=== PATIENT | female | born 1965 | race Two or more races ===

== ENCOUNTER → 2017-02-25 | Outpatient (CLI) | payer OTHER | END | disposition home or self-care (01) | LOC: KCIC US 12:24 | DX: D25.9 Leiomyoma of uterus, unspecified (principal); N88.8 Other specified noninflammatory disorders of cervix uteri | CPT/HCPCS: 76830; 76856 ==

== ENCOUNTER 2017-04-03 07:42 | Observation (INO) | payer OTHER ==
[~2017-04-03 07:42] MED LIST: HYDROmorphone 2 MG/ML VIAL IV; LIDOCAINE 1% PF 2 ML VIAL. ID; METHYLENE BLUE 1% 10 ML VIAL.; MORPHINE SULFATE 2 MG/ML DISP.SYRIN. IV; ONDANSETRON PF 4 MG/2 ML VIAL. IV; PROCHLORPERAZINE 10 MG/2 ML VIAL. IV; SURGICEL HEMOSTAT 4X8 EACH.; fentaNYL PF VIAL 100 MCG/2 ML VIAL IV
[2017-04-03 08:25] LABS: ADD MAN DIFF? NO
[2017-04-03 08:29] LABS: BASO # 0.1 x10^3/uL (0.0-0.2); BASO % 1 % (0-3); EOS # 0.3 x10^3/uL (0.0-0.7); EOS % 3 % (0-3); HEMATOCRIT 35.7 % (36.0-47.0); HEMOGLOBIN 10.7 g/dL (12.0-15.5); LYMPH # 1.1 x10^3/uL (1.0-4.8); LYMPH % 10 % (24-48); MEAN CORPUSCULAR HEMOGLOBIN 20 pg (25-35); MEAN CORPUSCULAR HGB CONC 30 g/dL (31-37); MEAN CORPUSCULAR VOLUME 68 fL (79-100); MONO # 0.8 x10^3/uL (0.0-1.1); MONO % 7 % (0-9); NEUT # 8.6 x10^3uL (1.8-7.7); NEUT % 79 % (31-73); PLATELET COUNT 672 x10^3/uL (140-400); RED BLOOD COUNT 5.28 x10^6/uL (3.50-5.40); RED CELL DISTRIBUTION WIDTH 24.3 % (11.5-14.5)
[2017-04-03 08:30] LABS: NEG OBC UR NEG; POS OBC UR POS; U PREG PATIENT NEGATIVE (NEG)
[2017-04-03] MEDS: IV RINGERS,LACTATED 1000ML 1,000 ML IV ×2 (08:30)
[2017-04-03] MEDS ORDERED: FAMOTIDINE 20 MG/2 ML VIAL ×2 (08:50)
[2017-04-03] MEDS ORDERED: fentaNYL PF VIAL 100 MCG/2 ML VIAL ×2 (08:50)
[2017-04-03] MEDS ORDERED: LIDOCAINE 2% PF Vial for OR 5 ML VIAL. ×2 (08:50)
[2017-04-03] MEDS ORDERED: ONDANSETRON PF 4 MG/2 ML VIAL. ×2 (08:50)
[2017-04-03] MEDS ORDERED: DEXAMETHASONE SOD PHOS 20 MG/5 ML VIAL. ×2 (08:50)
[2017-04-03] MEDS ORDERED: ROCURONIUM 50 MG/5 ML VIAL. ×2 (08:50)
[2017-04-03] MEDS ORDERED: PROPOFOL 20 ML IV ×2 (08:50)
[2017-04-03] MEDS ORDERED: MIDAZOLAM HCL/PF 2 MG/2 ML VIAL. ×2 (08:50)
[2017-04-03] MEDS ORDERED: KETOROLAC 30 MG/ML INJ FOR OR. INJ ×2 (09:50)
[2017-04-03] MEDS: LIDOCAINE 1%/EPI 1:100,000 20 ML VIAL. ×2 (10:00)
[2017-04-03] MEDS: BUPIVACAINE-EPI 0.25%-1:200000 50 ML VIAL. ×2 (10:00)
[2017-04-03 10:16] LABS: PLT ESTIMATE INCREASED (ADEQUATE)
[2017-04-03 10:17] LABS: ANISOCYTOSIS MOD; HYPOCHROMIA SLIGHT; MICROCYTOSIS PRESENT; OVALOCYTES FEW
[2017-04-03] MEDS ORDERED: NEOSTIGMINE METHYLSULFATE 5 MG/5 ML SYRINGE. ×2 (10:58)
[2017-04-03] MEDS ORDERED: GLYCOPYRROLATE 1 MG/5 ML VIAL. ×2 (10:58)
[2017-04-03] MEDS: ESTROGENS, CONJ VAGINAL CREAM 30GM TUBE. ×2 (11:00)
[2017-04-03] MEDS ORDERED: ePHEDrine PF IN SALINE 50 MG/5 ML DISP.SYRIN IV (11:03)
[2017-04-03] MEDS ORDERED: SEVOFLURANE 61 TO 120 MINUTES. IH ×2 (11:12)
[2017-04-03] MEDS ORDERED: CALCIUM CARBONATE 500 MG TAB.CHEW PO ×2 (11:30)
[2017-04-03] MEDS ORDERED: ZOLPIDEM 5 MG TABLET. PO ×2 (11:30)
[2017-04-03] MEDS ORDERED: diphenhydrAMINE HCL 25 MG CAPSULE PO ×2 (11:30)
[2017-04-03] MEDS ORDERED: PROCHLORPERAZINE 10 MG/2 ML VIAL. IV ×2 (11:30)
[2017-04-03] MEDS ORDERED: KETOROLAC 30 MG/ML INJ. IV ×2 (11:30)
[2017-04-03] MEDS ORDERED: 0.9 % SODIUM CHLORIDE 10 ML DISP.SYRIN. IV ×2 (11:30)
[2017-04-03] MEDS ORDERED: ONDANSETRON PF 4 MG/2 ML VIAL. IV ×2 (11:30)
[2017-04-03] MEDS ORDERED: DEXTROSE 50% 25 GM / 50ML DISP.SYRIN. IV ×2 (11:30)
[2017-04-03] MEDS ORDERED: diphenhydrAMINE 50 MG/ML VIAL IV ×2 (11:30)
[2017-04-03] MEDS: fentaNYL PF VIAL 100 MCG/2 ML VIAL IV ×4 (11:58→12:14)
[2017-04-03] MEDS: GABAPENTIN 300 MG CAPSULE. PO ×4 (14:00→21:31)
[2017-04-03] MEDS: oxyCODONE/APAP 5/325 1 TAB TABLET PO ×4 (15:04→21:36)
[2017-04-04] MEDS: GABAPENTIN 300 MG CAPSULE. PO ×4 (05:39→14:35)
[2017-04-04] MEDS: SIMETHICONE 80 MG TAB.CHEW PO ×4 (06:00→10:56)
[2017-04-04 06:37] LABS: BASO % 0 % (0-3); EOS % 0 % (0-3); HEMATOCRIT 29.8 % (36.0-47.0); HEMOGLOBIN 9.1 g/dL (12.0-15.5); LYMPH % 6 % (24-48); MEAN CORPUSCULAR HEMOGLOBIN 21 pg (25-35); MEAN CORPUSCULAR HGB CONC 30 g/dL (31-37); MEAN CORPUSCULAR VOLUME 67 fL (79-100); MONO # 0.8 x10^3/uL (0.0-1.1); MONO % 5 % (0-9); NEUT # 15.8 x10^3uL (1.8-7.7); NEUT % 90 % (31-73); PLATELET COUNT 557 x10^3/uL (140-400); RED BLOOD COUNT 4.43 x10^6/uL (3.50-5.40); RED CELL DISTRIBUTION WIDTH 24.4 % (11.5-14.5); WHITE BLOOD COUNT 17.7 x10^3/uL (4.0-11.0)
[2017-04-04 06:38] LABS: ADD MAN DIFF? YES
[2017-04-04 07:24] LABS: % BANDS 1 % (0-9); % LYMPHS 8 % (24-48); % MONOS 4 % (0-10); % SEGS 87 % (35-66); ANISOCYTOSIS PRESENT; HYPOCHROMIA PRESENT; MICROCYTOSIS PRESENT; POIKILOCYTOSIS PRESENT; POLYCHROMASIA PRESENT
[2017-04-04 07:49] LABS: PLT ESTIMATE INCREASED (ADEQUATE)
[2017-04-04] MEDS: ASPIRIN ENTERIC COATED 81 MG TABLET.DR. PO ×2 (10:50)
[2017-04-04] MEDS: oxyCODONE/APAP 5/325 1 TAB TABLET PO ×2 (15:02)
[2017-04-04] MEDS: BISACODYL 10 MG SUPP.RECT. PR ×2 (15:38)
== END 2017-04-04 17:48 | disposition home or self-care (01) ==
LOC: SURG 07:42 → 3 NORTH 11:18
DX: D25.9 Leiomyoma of uterus, unspecified (principal); N94.6 Dysmenorrhea, unspecified; N83.292 Other ovarian cyst, left side
CPT/HCPCS: 36415; 81025; 85007; 85025; 86850; 86900; 86901; 88307; A4215; G0378; G0379; J0690; J1100; J1885; J2250; J2405; J2704; J2710; J3010; J3490; J7030; J7120; Q9968; S0028

== ENCOUNTER → 2017-12-08 | Outpatient (CLI) | payer OTHER ==
[2017-04-04 17:33] VITALS: BP 136/89
[~2017-12-08] MED LIST changes: +AMLO5TAB7 PO; +ASPI-630 PO; +ATOR20TA58 PO; +DOCU-109 PO; +FERR325T14 PO; +FOLI1TAB16 PO; -HYDROmorphone 2 MG/ML VIAL IV; +LEVO50TA5 PO; -LIDOCAINE 1% PF 2 ML VIAL. ID; +LISI-130 PO; -METHYLENE BLUE 1% 10 ML VIAL.; -MORPHINE SULFATE 2 MG/ML DISP.SYRIN. IV; -ONDANSETRON PF 4 MG/2 ML VIAL. IV; +OXYC-323 PO; -PROCHLORPERAZINE 10 MG/2 ML VIAL. IV; -SURGICEL HEMOSTAT 4X8 EACH.; -fentaNYL PF VIAL 100 MCG/2 ML VIAL IV
--- NOTE | 2017-12-08 17:26 | KCIC ---
History: Routine screening. Technique: Bilateral digital mammographic routine views were obtained with CAD - computer aided detection. Comparison: None. Findings: Breast Tissue Density B :The breast tissue is composed of mixed fatty and fibroglandular tissue. There are no suspicious masses, microcalcifications or areas of architectural distortion. Impression: Negative mammogram. BI-RADS Category 1: Negative. Normal interval followup. A mammogram does not have 100% sensitivity and therefore a negative imaging study should not delay further work up of a suspicious abnormality. The patient will receive a letter with the results in the mail. Patient information is entered into the reminder system with a target due date for the next screening mammogram. The patient will receive a reminder. "Our facility is accredited by the [employer] Mammography [employer]." Electronically signed by: Teodoro Scanlon III, MD (12/08/2017 5:23 PM) [facility]
== END | disposition home or self-care (01) ==
LOC: KCIC MAMMO 12:52
PROVIDERS: ATTEND Obstetrics & Gynecology
DX: Z12.31 Encounter for screening mammogram for malignant neoplasm of breast (principal)
CPT/HCPCS: 77067

== ENCOUNTER → 2019-02-12 | Outpatient (CLI) | payer OTHER ==
[2017-04-04 17:33] VITALS: BP 136/89
[~2019-02-12] MED LIST changes: +AMLO5TAB10 PO; -AMLO5TAB7 PO; -OXYC-323 PO; +OXYC1TAB15 PO
--- NOTE | 2019-02-15 09:34 | KCIC ---
BILATERAL SCREENING MAMMOGRAM History: Routine screening. Comparison: Bilateral mammogram 12/08/2017. Technique: Routine bilateral digital mammogram views were obtained. Findings: Breast Tissue Density B : There are scattered areas of fibroglandular density. There are no dominant masses, suspicious microcalcifications, or architectural distortion. IMPRESSION: No mammographic evidence of malignancy. Recommend routine screening. BI-RADS category 1: Negative. The images were reviewed with computer aided detection. Patient information is entered into the reminder system with a target due date for the next screening mammogram. Mammography is the most sensitive method for finding small breast cancers, but it does not detect them all and is not a substitute for careful clinical examination. A negative mammogram does not negate a clinically suspicious finding and should not result in delay in biopsying a clinically suspicious abnormality. "Our facility is accredited by the [employer] Mammography [employer]." Electronically signed by: Matthieu Spear MD (02/15/2019 9:31 AM) [facility]
== END | disposition home or self-care (01) ==
LOC: KCIC MAMMO 14:39
PROVIDERS: ATTEND Family Medicine
DX: Z12.31 Encounter for screening mammogram for malignant neoplasm of breast (principal)
CPT/HCPCS: 77067

== ENCOUNTER → 2020-07-12 | Outpatient (CLI) | payer OTHER ==
[2017-04-04 17:33] VITALS: BP 136/89
[~2020-07-12] MED LIST changes: +AMLO-186 PO; -AMLO5TAB10 PO
[2020-07-12 14:35] LABS: BASO # 0.1 x10^3/uL (0.0-0.2); BASO % 1 % (0-3); EOS # 0.1 x10^3/uL (0.0-0.7); EOS % 2 % (0-3); HEMATOCRIT 46.3 % (36.0-47.0); HEMOGLOBIN 15.3 g/dL (12.0-15.5); LYMPH # 1.4 x10^3/uL (1.0-4.8); LYMPH % 19 % (24-48); MEAN CORPUSCULAR HEMOGLOBIN 33 pg (25-35); MEAN CORPUSCULAR HGB CONC 33 g/dL (31-37); MEAN CORPUSCULAR VOLUME 98 fL (79-100); MONO # 0.6 x10^3/uL (0.0-1.1); MONO % 9 % (0-9); NEUT # 4.9 x10^3/uL (1.8-7.7); NEUT % 70 % (31-73); PLATELET COUNT 292 x10^3/uL (140-400); RED BLOOD COUNT 4.71 x10^6/uL (3.50-5.40); RED CELL DISTRIBUTION WIDTH 16.4 % (11.5-14.5); WHITE BLOOD COUNT 7.1 x10^3/uL (4.0-11.0)
[2020-07-12 14:43] LABS: CALCIUM 9.1 mg/dL (8.5-10.1); CREATININE 0.8 mg/dL (0.6-1.0); POTASSIUM 4.2 mmol/L (3.5-5.1)
[2020-07-12 14:49] LABS: ALBUMIN 4.1 g/dL (3.4-5.0); TOTAL BILIRUBIN 0.6 mg/dL (0.2-1.0); TOTAL PROTEIN 8.1 g/dL (6.4-8.2)
== END ==
LOC: ONCLAB 13:51
PROVIDERS: ATTEND Internal Medicine Hematology & Oncology
DX: D45 Polycythemia vera (principal)
CPT/HCPCS: 36415; 80053; 83615; 85025

== ENCOUNTER → 2020-10-17 | Outpatient (CLI) | payer OTHER ==
[2017-04-04 17:33] VITALS: BP 136/89
[2020-10-17 08:50] LABS: BASO # 0.1 x10^3/uL (0.0-0.2); BASO % 1 % (0-3); EOS # 0.1 x10^3/uL (0.0-0.7); EOS % 2 % (0-3); HEMATOCRIT 46.3 % (36.0-47.0); HEMOGLOBIN 15.6 g/dL (12.0-15.5); LYMPH # 1.4 x10^3/uL (1.0-4.8); LYMPH % 18 % (24-48); MEAN CORPUSCULAR HEMOGLOBIN 34 pg (25-35); MEAN CORPUSCULAR HGB CONC 34 g/dL (31-37); MEAN CORPUSCULAR VOLUME 101 fL (79-100); MONO # 0.5 x10^3/uL (0.0-1.1); MONO % 6 % (0-9); NEUT # 5.5 x10^3/uL (1.8-7.7); NEUT % 73 % (31-73); PLATELET COUNT 278 x10^3/uL (140-400); RED BLOOD COUNT 4.59 x10^6/uL (3.50-5.40); RED CELL DISTRIBUTION WIDTH 17.3 % (11.5-14.5); WHITE BLOOD COUNT 7.6 x10^3/uL (4.0-11.0)
[2020-10-17 08:58] LABS: CALCIUM 9.3 mg/dL (8.5-10.1); CREATININE 0.8 mg/dL (0.6-1.0); GFR 74.7; POTASSIUM 4.6 mmol/L (3.5-5.1)
[2020-10-17 09:00] LABS: ALBUMIN 3.6 g/dL (3.4-5.0); ALBUMIN/GLOBULIN RATIO 0.9 (1.0-1.7); TOTAL BILIRUBIN 0.4 mg/dL (0.2-1.0); TOTAL PROTEIN 7.8 g/dL (6.4-8.2)
== END ==
LOC: ONCLAB 08:05
PROVIDERS: ATTEND Internal Medicine Hematology & Oncology
DX: D45 Polycythemia vera (principal)
CPT/HCPCS: 36415; 80053; 83615; 85025

== ENCOUNTER → 2021-01-15 | Outpatient (CLI) | payer OTHER ==
[2017-04-04 17:33] VITALS: BP 136/89
[2021-01-15 09:03] LABS: BASO # 0.1 x10^3/uL (0.0-0.2); BASO % 1 % (0-3); EOS # 0.1 x10^3/uL (0.0-0.7); EOS % 2 % (0-3); HEMATOCRIT 48.8 % (36.0-47.0); HEMOGLOBIN 15.9 g/dL (12.0-15.5); LYMPH # 1.2 x10^3/uL (1.0-4.8); LYMPH % 21 % (24-48); MEAN CORPUSCULAR HEMOGLOBIN 34 pg (25-35); MEAN CORPUSCULAR HGB CONC 33 g/dL (31-37); MEAN CORPUSCULAR VOLUME 105 fL (79-100); MONO # 0.4 x10^3/uL (0.0-1.1); MONO % 6 % (0-9); NEUT # 4.2 x10^3/uL (1.8-7.7); NEUT % 71 % (31-73); PLATELET COUNT 282 x10^3/uL (140-400); RED BLOOD COUNT 4.65 x10^6/uL (3.50-5.40); RED CELL DISTRIBUTION WIDTH 15.8 % (11.5-14.5); WHITE BLOOD COUNT 5.9 x10^3/uL (4.0-11.0)
[2021-01-15 09:15] LABS: CREATININE 0.6 mg/dL (0.6-1.0); GFR 104.2; POTASSIUM 4.5 mmol/L (3.5-5.1)
[2021-01-15 09:23] LABS: ALBUMIN 3.7 g/dL (3.4-5.0); ALBUMIN/GLOBULIN RATIO 0.9 (1.0-1.7); TOTAL BILIRUBIN 0.6 mg/dL (0.2-1.0)
== END ==
LOC: ONCLAB 08:35
PROVIDERS: ATTEND Internal Medicine Hematology & Oncology
DX: D50.0 Iron deficiency anemia secondary to blood loss (chronic) (principal); D45 Polycythemia vera
CPT/HCPCS: 36415; 80053; 83615; 85025

== ENCOUNTER → 2021-04-23 | Outpatient (CLI) | payer OTHER ==
[2017-04-04 17:33] VITALS: BP 136/89
[2021-04-23 08:34] LABS: BASO % 1 % (0-3); EOS # 0.1 x10^3/uL (0.0-0.7); EOS % 2 % (0-3); HEMATOCRIT 49.5 % (36.0-47.0); HEMOGLOBIN 15.8 g/dL (12.0-15.5); LYMPH # 1.3 x10^3/uL (1.0-4.8); LYMPH % 21 % (24-48); MEAN CORPUSCULAR HEMOGLOBIN 34 pg (25-35); MEAN CORPUSCULAR HGB CONC 32 g/dL (31-37); MEAN CORPUSCULAR VOLUME 105 fL (79-100); MONO # 0.4 x10^3/uL (0.0-1.1); MONO % 6 % (0-9); NEUT # 4.5 x10^3/uL (1.8-7.7); NEUT % 70 % (31-73); PLATELET COUNT 272 x10^3/uL (140-400); RED BLOOD COUNT 4.73 x10^6/uL (3.50-5.40); RED CELL DISTRIBUTION WIDTH 15.6 % (11.5-14.5); WHITE BLOOD COUNT 6.4 x10^3/uL (4.0-11.0)
[2021-04-23 08:39] LABS: CREATININE 0.8 mg/dL (0.6-1.0); GFR 74.7; POTASSIUM 4.4 mmol/L (3.5-5.1)
[2021-04-23 08:45] LABS: ALBUMIN/GLOBULIN RATIO 0.9 (1.0-1.7); TOTAL BILIRUBIN 0.7 mg/dL (0.2-1.0); TOTAL PROTEIN 8.6 g/dL (6.4-8.2)
== END ==
LOC: ONCLAB 08:11
PROVIDERS: ATTEND Internal Medicine Hematology & Oncology
DX: D45 Polycythemia vera (principal)
CPT/HCPCS: 36415; 80053; 85025

== ENCOUNTER → 2021-05-30 | Outpatient (CLI) | payer OTHER ==
[2017-04-04 17:33] VITALS: BP 136/89
[2021-05-30 15:40] LABS: BASO # 0.1 x10^3/uL (0.0-0.2); BASO % 1 % (0-3); EOS # 0.1 x10^3/uL (0.0-0.7); EOS % 2 % (0-3); HEMATOCRIT 46.7 % (36.0-47.0); HEMOGLOBIN 15.4 g/dL (12.0-15.5); LYMPH # 1.6 x10^3/uL (1.0-4.8); LYMPH % 22 % (24-48); MEAN CORPUSCULAR HEMOGLOBIN 35 pg (25-35); MEAN CORPUSCULAR HGB CONC 33 g/dL (31-37); MEAN CORPUSCULAR VOLUME 106 fL (79-100); MONO # 0.5 x10^3/uL (0.0-1.1); MONO % 7 % (0-9); NEUT # 5.2 x10^3/uL (1.8-7.7); NEUT % 69 % (31-73); PLATELET COUNT 265 x10^3/uL (140-400); RED BLOOD COUNT 4.39 x10^6/uL (3.50-5.40); RED CELL DISTRIBUTION WIDTH 15.7 % (11.5-14.5); WHITE BLOOD COUNT 7.6 x10^3/uL (4.0-11.0)
[2021-05-30 16:01] LABS: CALCIUM 9.2 mg/dL (8.5-10.1); CREATININE 0.8 mg/dL (0.6-1.0); GFR 74.7; POTASSIUM 4.1 mmol/L (3.5-5.1)
[2021-05-30 16:08] LABS: ALBUMIN 4.1 g/dL (3.4-5.0); ALBUMIN/GLOBULIN RATIO 1.1 (1.0-1.7); TOTAL BILIRUBIN 0.6 mg/dL (0.2-1.0); TOTAL PROTEIN 7.9 g/dL (6.4-8.2)
== END ==
LOC: ONCLAB 14:38
PROVIDERS: ATTEND Internal Medicine Hematology & Oncology
DX: D50.0 Iron deficiency anemia secondary to blood loss (chronic) (principal); D45 Polycythemia vera
CPT/HCPCS: 36415; 80053; 83615; 85025

== ENCOUNTER → 2021-06-01 | Outpatient (CLI) | payer OTHER ==
[2017-04-04 17:33] VITALS: BP 136/89
--- NOTE | 2021-06-01 15:26 | KCIC ---
Bilateral digital screening mammograms: Reason for examination: Routine screening. Comparison is made to previous studies dated 02/12/2019 and 01/06/2018. Interpretation was made with the benefit of CAD. The skin and nipples show no abnormalities. No abnormal axillary lymph nodes are seen. The breast par enchyma shows scattered fibroglandular density. (Breast density: Category B.) There are no dominant m asses, suspicious calcifications or architectural distortions. Impression: No evidence of malignancy. Recommend routine screening. BI-RADS Category 1: Negative. "Our facility is accredited by the [employer] Mammography [employer]." This patient's information has been entered into a reminder system for the patient to be notified wit h the results of her examination and a target date for the next mammogram. Electronically signed by: Chelsea Melendrez MD (06/01/2021 3:23 PM) [id number]
== END ==
LOC: KCIC MAMMO 14:48
PROVIDERS: ATTEND Family Medicine
DX: Z12.31 Encounter for screening mammogram for malignant neoplasm of breast (principal)
CPT/HCPCS: 77067

== ENCOUNTER → 2021-07-02 | Outpatient (CLI) | payer OTHER ==
[2017-04-04 17:33] VITALS: BP 136/89
[2021-07-02 16:29] LABS: BASO # 0.1 x10^3/uL (0.0-0.2); BASO % 1 % (0-3); EOS # 0.1 x10^3/uL (0.0-0.7); EOS % 2 % (0-3); HEMATOCRIT 44.1 % (36.0-47.0); LYMPH # 1.7 x10^3/uL (1.0-4.8); LYMPH % 27 % (24-48); MEAN CORPUSCULAR HEMOGLOBIN 36 pg (25-35); MEAN CORPUSCULAR HGB CONC 34 g/dL (31-37); MEAN CORPUSCULAR VOLUME 106 fL (79-100); MONO # 0.5 x10^3/uL (0.0-1.1); MONO % 9 % (0-9); NEUT # 3.9 x10^3/uL (1.8-7.7); NEUT % 62 % (31-73); PLATELET COUNT 256 x10^3/uL (140-400); RED BLOOD COUNT 4.17 x10^6/uL (3.50-5.40); RED CELL DISTRIBUTION WIDTH 15.9 % (11.5-14.5); WHITE BLOOD COUNT 6.3 x10^3/uL (4.0-11.0)
[2021-07-02 17:00] LABS: CALCIUM 9.1 mg/dL (8.5-10.1); CREATININE 0.7 mg/dL (0.6-1.0); GFR 87.2; POTASSIUM 4.1 mmol/L (3.5-5.1)
[2021-07-02 17:05] LABS: ALBUMIN 3.8 g/dL (3.4-5.0); ALBUMIN/GLOBULIN RATIO 0.9 (1.0-1.7); TOTAL BILIRUBIN 0.6 mg/dL (0.2-1.0); TOTAL PROTEIN 8.1 g/dL (6.4-8.2)
== END ==
LOC: ONCLAB 15:33
PROVIDERS: ATTEND Internal Medicine Hematology & Oncology
DX: D45 Polycythemia vera (principal)
CPT/HCPCS: 36415; 80053; 85025